=== PATIENT | male | born 1965 | race Caucasian/White ===

== ENCOUNTER 2017-09-21 23:42 | Emergency (ER) | payer SELFPAY ==
[~2017-09-21] VITALS: Ht 172.7 cm; Wt 90.7 kg
[2017-09-22] MEDS ORDERED: BENZONATATE 100 MG CAPSULE PO ONE
[2017-09-22] MEDS ORDERED: IBUPROFEN 200 MG TABLET PO ONE
[2017-09-22] MEDS ORDERED: DEXAMETHASONE 4 MG TABLET PO ONE
[2017-09-22] MEDS ORDERED: BENZONATATE 100 MG CAPSULE ONE (00:06)
[2017-09-22] MEDS ORDERED: DEXAMETHASONE 4 MG TABLET ONE (00:06)
[2017-09-22] MEDS ORDERED: IBUPROFEN 200 MG TABLET ONE (00:07)
[2017-09-22 01:06] VITALS: BP 148/68
== END 2017-09-22 01:13 | disposition home or self-care (01) ==
LOC: ED 23:59
DX: J20.8 Acute bronchitis due to other specified organisms (principal); J00 Acute nasopharyngitis [common cold]
CPT/HCPCS: 71046; 99284